=== PATIENT | female | born 1950 | race Caucasian/White ===

== ENCOUNTER 2016-04-13 00:04 | Emergency (ER) | payer BC ==
[~2016-04-13] VITALS: Ht 170.2 cm; Wt 78.6 kg
[~2016-04-13 00:04] MED LIST: AMLO10TA4 PO; ASPI-586 PO; CPR500T PO; CYCL10TA45 PO; ESTR0.5T PO; GLUC100016 PO; HYDR-3881 PO; LOSA1TAB15 PO; MULT-642 PO; NF-TYLARTH PO; OMEP10SU PO; OMG1KC PO; PRAV40TA PO; PROG100C3 PO; SERT100T PO; VENL150C PO; [UNRECOGNIZED DRUG - CODE] PO
--- OUTSIDE RECORDS SUMMARY | 2016-04-13 00:08 | XMS REPORT | Summary of Care ---
Author Author Van Crews M.D. Organization Unknown Address Unknown Phone Unavailable Care Team Providers Care Commercial Collections Specialist Name Role Phone Van Crews M.D. Unavailable Unavailable Van Crews Unavailable Unavailable Unavailable Unavailable Functional Status Name Dates Details Functional status health issues are not documented Status: Name Dates Details Cognitive status health issues are not documented Status: Problems Name Dates Details Osteoarthritis, knee (715.36, M17.9) Status: Active UTI symptoms (788.99, R39.9) Status: Active Depression (311, F32.9) Status: Active Hypercholesterolemia (272.0, E78.00) Status: Active Hypertension (401.9, I10) Status: Active Loose bowel movements (787.91, R19.7) Status: Active Weakness generalized (780.79, R53.1) Status: Active Near syncope (780.2, R55) Status: Active Diaphoresis (780.8, R61) Status: Active Medications Name Dates Details Sertraline HCl - 100 MG Oral Tablet Take 1 daily along with a 50mg tab. (total 150mg) Quantity: 30 Refills: 11 Van Crews M.D. Start 09-Aug-2015 Active Sertraline HCl - 50 MG Oral Tablet Take 1 po daily with a 100mg tab. (total 150mg daily) Quantity: 30 Refills: 11 Van Crews M.D. Start 09-Aug-2015 Active Pravastatin Sodium 40 MG Oral Tablet TAKE 1 TABLET DAILY. Refills: 0 Van Crews M.D. Start 09-Aug-2015 Active Aspir-81 81 MG Oral Tablet Delayed Release TAKE 1 TABLET DAILY DIRECTED. Quantity: 300 Refills: 0 Van Crews M.D. Start Active Losartan Potassium-HCTZ 100-25 MG Oral Tablet TAKE 1 TABLET DAILY. Quantity: 180 Refills: 1 Van Crews M.D. Start Active AmLODIPine Besylate 10 MG Oral Tablet TAKES 1 TABLET DAILY IN AM. Quantity: 90 Refills: 3 Van Crews M.D. Start Active Estradiol 0.5 MG Oral Tablet TAKE 1 TABLET DAILY. Quantity: 90 Refills: 0 Van Crews M.D. Start Active Imipramine HCl - 10 MG Oral Tablet TAKE 1 TABLET AT BEDTIME. Quantity: 90 Refills: 3 Van Crews M.D. Start Active Allergies and Adverse Reactions Name Dates Details Sulfa Drugs (Allergy) Status: Active Procedures Procedure Dates Details ECG/ EKG Ordered: 25-Feb-2016 BASIC METABOLIC PROFILE 1210 Ordered: 25-Feb-2016 CBC w/ Auto Diff 7150 Ordered: 25-Feb-2016 Urinalysis, reflex to Micro and Culture ([facility]) 8016 Ordered: Feb-2016 Immunization Name Dates Details Immunizations not documented Social History Name Dates Details Unknown if ever smoked Vital Signs Date Test Result Details No Known Vitals to report Results Date Description Value Details Results not documented Plan of Care Name Dates Details Planned Observations Planned Goals not documented Planned Encounters Appointment; Provider: Van Crews M.D. On 12-Apr-2016 09:00 Appointment; Provider: Van Crews M.D. On 01-Mar-2016 11:30 Interventions Provided Labs/Procedures/ImagingBASIC METABOLIC PROFILE 1210; To be Done: 25 Feb 2016CBC w/ Auto Diff 7150; To be Done: 25 Feb 2016Urinalysis, reflex to Micro and Culture ([facility]) 8016; To be Done: 25 Feb 2016 Instructions Name Dates Details Instructions not documented Encounters Appointment; Ana Haro Encounter Diagnosis: Problem not documented On 02-Nov-2015 13:45 Appointment; Van Crews M.D. Encounter Diagnosis: Problem not documented On 13:30 Appointment; Van Crews M.D. Encounter Diagnosis: Problem not documented On 10:30
[2016-04-13] MEDS ORDERED: ONDANSETRON 2 MG/ML (Z0FRAN) 2 ML VIAL IV ONE (00:35)
[2016-04-13] MEDS ORDERED: HYDROmorphone 1 MG/ML (DILAUDID) SYRINGE IV ONE (01:10)
[2016-04-13] MEDS ORDERED: PROMETHAZINE HCL INJ 12.5 MG in SODIUM CHLORIDE 25 ML IV ONE (01:35)
[2016-04-13 01:48] LABS: MEAN CORPUSCULAR HEMOGLOBIN 30.5 PG (26.0-34.0); MEAN CORPUSCULAR HGB CONC 33.2 g/dL (31.0-37.0); MEAN CORPUSCULAR VOLUME 92 FL (80-100); MEAN PLATELET VOLUME 9.5 FL (6.0-9.5); PLATELET COUNT 235 10^3uL (150-450)
[2016-04-13 01:58] LABS: CALCULATED IONIZED CALCIUM 3.9 mg/dL (3.8-4.6); TOTAL PROTEIN 7.1 g/dL (6.4-8.5)
[2016-04-13 02:16] LABS: CLARITY,URINE Clear; COLOR,URINE Yellow; GLUCOSE, URINE (UA) Negative (Negative); LEUKOCYTE ESTERASE ,URINE Negative (Negative); UROBILINOGEN,URINE 0.2 mg/dL (0.2-1.0)
[2016-04-13 02:24] LABS: INFLUENZA VIRUS TYPE A ANTIBOD Negative (NEGATIVE); INFLUENZA VIRUS TYPE B ANTIBOD Negative (NEGATIVE)
[2016-04-13 02:30] LABS: BILIRUBIN,URINE 1+ (Negative)
[2016-04-13 02:37] LABS: RBC,URINE 0-2 /HPF; URINE CENTRIFUGED VOLUME 12 mL
[2016-04-13] MEDS ORDERED: ONDAN4ODT PO (02:45)
[2016-04-13] MEDS ORDERED: ED- ONDANSETRON ODT 4 MG (ZOFRAN) 4 TABLETS/BTL PO ONE (02:50)
[2016-04-13 02:56] VITALS: BP 130/74
[2016-04-13 03:36] LABS: BAND NEUTROPHILS % 2 % (0-6); LYMPHOCYTES # 0.2 #; MONOCYTES # 0.3 #; MONOCYTES % 3 % (3-11); RBC MORPH NORMAL (NORMAL); SEGMENTED NEUTROPHILS % 93 % (51-67); TOTAL CELLS COUNTED 100
--- NOTE | 2016-04-13 08:15 | Diagnostic Imaging Report ---
INDICATION: Vomiting and abdominal pain Abdominal series performed with a frontal chest radiograph and supine and upright abdominal films. Frontal chest view shows heart normal in size with lungs clear. There is no pneumothorax or pleural fluid. There is no free intraperitoneal air. There are postop changes in the lumbar spine. There is no sign of bowel obstruction or ileus. IMPRESSION: Nonspecific bowel gas pattern with no sign of obstruction or ileus. No free intraperitoneal air. No acute process in the chest. Dictated by: Dictated on workstation # [id number]
[2016-04-24 11:06] LABS: EOSINOPHILS % 0 % (0-4)
== END 2016-04-13 02:55 | disposition home or self-care (01) ==
LOC: ED 00:07
DX: R11.2 Nausea with vomiting, unspecified (principal); R19.7 Diarrhea, unspecified
CPT/HCPCS: 36415; 74022; 80053; 81003; 81015; 83690; 85025; 86140; 87400; J1170; J2405; J2550; J7030; 87502; 96361; 96374; 96375; 99283

== ENCOUNTER → 2016-06-05 | Outpatient (CLI) | payer BC, MEDICARE | LOC: RAD 08:54 | PROVIDERS: ATTEND Family Medicine | DX: R92.2 Inconclusive mammogram (principal) | CPT/HCPCS: 76642; G0206 ==